=== PATIENT | male | born 1970 | race Caucasian/White ===

== ENCOUNTER 2021-11-05 10:28 | Observation (INO) | payer MEDICARE ==
[~2021-11-05] VITALS: Ht 185.4 cm; Wt 95.2 kg
[2021-11-05 10:56] LABS: BASOPHILS ABSOLUTE AUTO 0.07 K/mm3 (0.00-0.23); BASOPHILS PERCENT AUTO 1 % (0-2); EOSINOPHILS ABSOLUTE AUTO 0.39 K/mm3 (0.00-0.68); EOSINOPHILS PERCENT AUTO 4 % (0-6); Hematocrit 38.9 % (37.0-53.0); Hemoglobin 13.1 g/dL (13.5-17.5); IMMATURE GRAN ABSOLUTE AUTO 0.02 K/mm3 (0.00-0.10); IMMATURE GRAN PERCENT AUTO 0 % (0-1); LYMPHOCYTES ABSOLUTE AUTO 1.62 K/mm3 (0.84-5.20); LYMPHOCYTES PERCENT AUTO 15 % (21-46); MONOCYTES ABSOLUTE AUTO 1.17 K/mm3 (0.16-1.47); MONOCYTES PERCENT AUTO 11 % (4-13); Mean Corpuscular HGB 25.9 pg (26.0-34.0); Mean Corpuscular HGB Conc 33.7 g/dL (31.5-36.5); Mean Corpuscular Volume 77 fL (80-100); Mean Platelet Volume 10.6 fL (9.1-12.4); NEUTROPHILS ABSOLUTE AUTO 7.53 K/mm3 (1.96-9.15); NEUTROPHILS PERCENT AUTO 70 % (41-73); Platelet Count 292 K/mm3 (150-400); RDW Coefficient Variation 14.6 % (11.7-14.2); RDW Standard Deviation 40.5 fL (35.1-46.3); Red Blood Cell Count 5.06 M/mm3 (4.30-5.90)
[2021-11-05 11:15] LABS: Albumin, Blood 3.3 g/dL (3.4-5.0); Albumin/Globulin Ratio 0.8 (0.8-1.8); Bilirubin, Total 0.6 mg/dL (0.1-1.0); Globulin, Blood 4.4 g/dL (2.2-4.0); Potassium, Blood 3.3 mmol/L (3.5-5.5); Total Protein, Blood 7.7 g/dL (6.4-8.2)
[2021-11-05 12:27] LABS: Source, Urine Clean Catch
[2021-11-05 12:37] LABS: Appearance, Urine Clear (Clear); Bilirubin, Urine Neg (Neg); Blood, Urine 2+ (Neg); Color, Urine Yellow (P-Yellow); Glucose Qualitative, Urine Neg (Neg); Ketones, Urine Neg (Neg); Leukocyte Esterase, Urine Neg (Neg); Nitrite, Urine Neg (Neg); Protein, Urine 2+ (Neg); Urobilinogen, Urine 1+ (Normal)
[2021-11-05 12:59] LABS: Bacteria Few /hpf; Red Blood Cells, Urine 0-2 /hpf (0-2); Squamous Epithelial Cells Rare /hpf (Few); White Blood Cells, Urine 0-2 /hpf (0-5)
[2021-11-05 13:42] LABS: Influenza A, PCR NEGATIVE (NEGATIVE); Influenza B, PCR NEGATIVE (NEGATIVE); Resp Syncytial Virus, PCR NEGATIVE (NEGATIVE); SARS-Cov-2 (COVID-19) PCR, MMC NEGATIVE (NEGATIVE)
--- NOTE | 2021-11-05 14:27 | NUR ---
11/05/21 1427 Charlotte Martínez PT RECIEVED ANTIBIOTICS IN ER PRIOR TO ARRIVAL TO OR.
--- NOTE | 2021-11-05 16:46 | NUR ---
AWAKE, DENIES PAIN OR NAUSEA, VSS. DRESSING DRY AND INTACT
--- NOTE | 2021-11-05 17:50 | NUR ---
SHIFT SUMMARY PT A&OX4, VSS/RA, SOLOMON PO, DENIES PAIN AT THIS TIME, AWAITING POST-OP VOID, GIRLFRIEND AT BEDSIDE. WILL REPORT TO ONCOMING NOC RN.
--- NOTE | 2021-11-06 05:28 | NUR ---
SHIFT SUMMMARY A/O X4- PLEASANT AND COOPERATIVE THROUGHOUT SHIFT. POD1 LAP PRIYANK- 4X LAP SITES COVERED W/ GAUZE AND TEGADERM- SCANT AMOUNT OF RED DRAINAGE. PAIN TREATED W/ PO PAIN MEDICATION. VITAL SIGNS TRENDING IN THE RIGHT DIRECTION. TELE IN PLACE- HEAD OF ICT REPORTS SINUS RHYTHM AT 89 BPM. PT IND IN ROOM. TOLERATING PO INTAKE, VOIDING AND PASSING FLATUS. NO N/V REPORTED, WILL CONTINUE TO MONITOR AND REPORT TO ONCOMING RN.
[2021-11-06] MEDS ORDERED: LISI5 PO (11:28)
[2021-11-06] MEDS ORDERED: Norco 5-325 Ta1 EACH PO (11:28)
== END 2021-11-06 12:20 | disposition home or self-care (01) ==
LOC: ER 10:28 → MEDS 10:29 → SURS 10:29 → ER 10:29 → MEDS 10:30 → SURS 10:31 → MEDS 13:49 → SURS 11-06 12:20
PROVIDERS: Emergency Medicine; ADMIT Surgery
DX: K80.12 Calculus of gallbladder with acute and chronic cholecystitis without obstruction (principal); F17.220 Nicotine dependence, chewing tobacco, uncomplicated; Z20.822 Contact with and (suspected) exposure to COVID-19
CPT/HCPCS: 0241U; 74177; 80053; 81001; 83690; 85025; 88304; 96365-59; 96372; 96375; 96376; 99285-25; A9270; C1729; G0378; J0295; J0330; J1100; J1170; J1200; J1650; J1885; J2370; J2405; J2704; J2795; J3010; J7120; Q9967